=== PATIENT | male | born 1985 | race Caucasian/White ===

== ENCOUNTER 2017-07-31 14:49 | Emergency (ER) | payer MEDICAID ==
[~2017-07-31] VITALS: Ht 177.8 cm; Wt 108.9 kg
[2017-07-31 14:51] VITALS: BP 181/104
--- NOTE | 2017-07-31 14:51 | NUR ---
PT AMBULATED TO BED 4
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
--- NOTE | 2017-07-31 15:20 | NUR ---
Patient being evaluated by physician at bedside.
[2017-07-31] MEDS ORDERED: LIDOCAINE/EPI 2% 1:100000 20 ML VIAL INJ ONE (15:40)
[2017-07-31] MEDS ORDERED: ACETAMINOPHEN 325 MG TAB PO ONE (15:40)
--- NOTE | 2017-07-31 16:11 | NUR ---
PT MOVED TO BED 3
[2017-07-31 16:56] VITALS: BP 160/78
--- NOTE | 2017-07-31 16:56 | NUR ---
Patient discharged with v/s stable. Written and verbal after care instructions given and explained. Patient alert, oriented and verbalized understanding of instructions. Ambulatory with steady gait. All questions addressed prior to discharge. ID band removed. Patient advised to follow up with PMD. Rx of KEFLEX AND NAPROSYN given. Patient educated on indication of medication including possible reaction and side effects. Opportunity to ask questions provided and answered.
== END 2017-07-31 16:56 | disposition home or self-care (01) ==
LOC: MED 14:49
DX: S61.412A Laceration without foreign body of left hand, initial encounter (principal); Z23 Encounter for immunization; W29.0XXA Contact with powered kitchen appliance, initial encounter; Y93.89 Activity, other specified; Y92.89 Other specified places as the place of occurrence of the external cause; Y99.8 Other external cause status
CPT/HCPCS: 12042; 90471; 90715; 99283; J2001

== ENCOUNTER 2017-08-10 07:40 | Emergency (ER) | payer MEDICAID ==
[~2017-08-10] VITALS: Ht 177.8 cm; Wt 104.3 kg
[2017-08-10 07:45] VITALS: BP 149/86
--- NOTE | 2017-08-10 07:54 | NUR ---
PT AMBULATED TO BED 2.
--- NOTE | 2017-08-10 07:59 | NUR ---
pt comes to have 8 sutures removed from left hand placed 10 days ago. wound is clean, no drainage or inflamation. 8 sutures removed with suture removal kit per MD order. pt tolerated well.
[2017-08-10 08:09] VITALS: BP 145/78
--- NOTE | 2017-08-10 08:10 | NUR ---
Patient discharged with v/s stable. Written and verbal after care instructions given and explained. Patient verbalized understanding. Ambulatory with steady gait. All questions addressed prior to discharge. Advised to follow up with PMD.
== END 2017-08-10 08:10 | disposition home or self-care (01) ==
LOC: MED 07:40
DX: S61.412D Laceration without foreign body of left hand, subsequent encounter (principal); X58.XXXD Exposure to other specified factors, subsequent encounter
CPT/HCPCS: 99283

== ENCOUNTER 2021-01-06 03:47 | Emergency (ER) | payer SELFPAY ==
[~2021-01-06] VITALS: Ht 180.3 cm; Wt 95.3 kg
[2021-01-06 03:55] VITALS: BP 133/88
--- NOTE | 2021-01-06 03:58 | NUR ---
TO LOBBY A/W BED ANBULATORY
--- NOTE | 2021-01-06 04:25 | NUR ---
SEEN AND EXAMINED BY ERMS WITH ORDERS, CARRIED OUT
[2021-01-06] MEDS ORDERED: PANTOPRAZOLE 40 MG INJ VIAL IVP ONE (04:30)
[2021-01-06] MEDS ORDERED: NACL 0.9% 1,000 ML IV SCH (04:30)
[2021-01-06] MEDS ORDERED: MORPHINE SULFATE 2 MG/ML SYR IVP ONE (04:30)
[2021-01-06] MEDS ORDERED: ONDANSETRON 4 MG/2 ML VIAL IVP ONE (04:30)
--- NOTE | 2021-01-06 04:50 | NUR ---
Blood for labwork drawn from [facility] . Patient tolerated WELL.
--- NOTE | 2021-01-06 05:00 | NUR ---
MEDICATED PER ERMDS ORDER, TOLERATED WELL.
[2021-01-06 05:34] LABS: APPEARANCE,URINE CLEAR (CLEAR); BILIRUBIN,URINE NEGATIVE (NEGATIVE); BLOOD, URINE NEGATIVE (NEGATIVE); COLOR,URINE YELLOW (YELLOW); LEUKOCYTE ESTERASE ,URINE NEGATIVE (NEGATIVE); NITRITE, URINE NEGATIVE (NEGATIVE); UGLUCOSE NEGATIVE (NEGATIVE)
[2021-01-06 05:37] LABS: BASOPHILS # (AUTO) 0.1 K/uL (0.00-0.22); BASOPHILS % (AUTO) 1.4 % (0.0-2.0); EOSINOPHILS # (AUTO) 0.2 K/uL (0-0.4); EOSINOPHILS % (AUTO) 3.8 % (0.0-4.0); HEMATOCRIT 42.1 % (36-52); HEMOGLOBIN 14.2 g/dL (12.0-18.0); LYMPHOCYTES # (AUTO) 2.3 K/uL (2.0-11.5); LYMPHOCYTES % (AUTO) 37.8 % (20.5-51.1); MEAN CORPUSCULAR HEMOGLOBIN 30 pg (27-31); MEAN CORPUSCULAR HGB CONC 34 g/dL (33-37); MEAN CORPUSCULAR VOLUME 89.7 fL (80-94); MONOCYTES # (AUTO) 0.4 K/uL (0.8-1.0); MONOCYTES % (AUTO) 6.3 % (1.7-9.3); NEUTROPHILS # (AUTO) 3.1 K/uL (1.8-7.7); NEUTROPHILS % (AUTO) 50.7 % (42.2-75.2); PLATELET COUNT (AUTO) 231 K/uL (140-450); RED BLOOD CELL COUNT(AUTO) 4.69 MIL/uL (4.20-6.10); RED CELL DISTRIBUTION WIDTH 14.2 % (11.6-13.7); WHITE BLOOD COUNT (AUTO) 6.1 K/uL (4.8-10.8)
--- NOTE | 2021-01-06 05:45 | NUR ---
ALL RESULTS BACK AND NOTED BY ERMD AND FOR D/C
[2021-01-06 05:52] LABS: ALBUMIN 3.6 g/dL (3.4-5.0); ANION GAP 8.2 (8-16); CARBON DIOXIDE 29.8 mmol/L (21-32); CREATININE 0.8 mg/dL (0.6-1.3); TOTAL BILIRUBIN 0.2 mg/dL (0.0-1.0)
[2021-01-06] MEDS ORDERED: PANT40EC PO (05:58)
[2021-01-06] MEDS ORDERED: MAGN1.7529 PO (05:58)
[2021-01-06 06:30] VITALS: BP 119/79
--- NOTE | 2021-01-06 06:30 | NUR ---
Patient discharged with v/s stable. Written and verbal after care instructions given and explained. Patient alert, oriented and verbalized understanding of instructions. Ambulatory with steady gait. All questions addressed prior to discharge. ID band removed. Patient advised to follow up with PMD. Rx of PROTONIX, MAGNESUIM CITRATE given. Patient educated on indication of medication including possible reaction and side effects. Opportunity to ask questions provided and answered.
== END 2021-01-06 06:30 | disposition home or self-care (01) ==
LOC: MED 03:47
DX: R10.13 Epigastric pain (principal); Z79.899 Other long term (current) drug therapy
CPT/HCPCS: 36415; 74176; 80053; 81003; 83690; 84703; 85025; 96361; 96374; 96375; 99284; C9113; J2270; J2405; J7030